=== PATIENT | female | born 1975 | race Caucasian/White ===

== ENCOUNTER 2019-05-30 03:31 | Emergency (ER) | payer SELFPAY ==
[~2019-05-30] VITALS: Ht 165.1 cm; Wt 96.7 kg
[2019-05-30 03:33] VITALS: BP 165/91
== END 2019-05-30 04:30 | disposition home or self-care (01) ==
LOC: ED 03:31
DX: R05 Cough (principal); R50.9 Fever, unspecified; I10 Essential (primary) hypertension; Z88.5 Allergy status to narcotic agent
CPT/HCPCS: Q0092